=== PATIENT | male | born 1975 | race African-American/Black ===

== ENCOUNTER 2024-11-05 19:30 | Emergency (ER) | payer OTHER ==
[~2024-11-05] VITALS: Ht 175.3 cm; Wt 81.9 kg
[2024-11-05] MEDS ORDERED: IBUPROFEN 800 MG TAB PO ONE (21:15)
[2024-11-05] MEDS ORDERED: CYCLOBENZAPRINE10 MG PO (22:32)
[2024-11-05] MEDS ORDERED: CYCLOBENZAPRINE HCL 10 MG HOME.PACK PO ONE (22:45)
[2024-11-05] MEDS ORDERED: HYDROCODONE BIT/ACETAMINOPHEN 5/325 MG 1 TAB HOME.PACK PO ONE (22:45)
[2024-11-05 23:05] VITALS: BP 116/80
== END 2024-11-05 23:05 | disposition home or self-care (01) ==
LOC: ED 19:30
DX: S16.1XXA Strain of muscle, fascia and tendon at neck level, initial encounter (principal); M47.9 Spondylosis, unspecified; V69.9XXA Occupant (driver) (passenger) of heavy transport vehicle injured in unspecified traffic accident, initial encounter
CPT/HCPCS: 72125; 72131; 99284-25; A9270